=== PATIENT | male | born 1985 | race African-American/Black ===

== ENCOUNTER 2018-06-05 15:13 | Emergency (ER) | payer BC, OTHER ==
[2018-06-05] MEDS: DIPHTH/TET/ACEL PERTUSS (ADULT) 0.5 ML VIAL IM* (16:53)
== END 2018-06-05 17:07 | disposition home or self-care (01) ==
LOC: FTE 15:13
DX: L02.416 Cutaneous abscess of left lower limb (principal); F17.210 Nicotine dependence, cigarettes, uncomplicated; Z23 Encounter for immunization
CPT/HCPCS: 10060; 90471; 90715; 99283-25